=== PATIENT | male | born 1950 | race Caucasian/White ===

== ENCOUNTER 2016-11-23 20:42 | Inpatient (IN) | payer MEDICARE ==
--- NOTE | ~2016-11-23 | PN ---
Unit #: [id number] #: [id number] Patient: ROJAS CLINTON [id number] [facility] [address] [place] [address] [id number] MR#: [id number] NAME: ROJAS CLINTON. ROOM: P256 Age: 66 Sex: M Admission Date: 11/23/2016 : 1950 Attending Physician: Jonas Torres M.D. Admitting Physician: Jonas Torres M.D. Primary Care Physician: Generic Doctor Not In System [facility] PROGRESS NOTES DATE OF SERVICE 11/25/2016 DISCUSSION Rojas Clinton is a 66-year-old male seen on 11/25/2016. Patient interviewed, chart reviewed, and obtained information from nursing staff. Patient was compliant and cooperative. Mood sad, dysphoric, labile. Patient has poor insight and poor judgement. Patient reports that he does not need any medication. He was here for sciatic nerve problem. Patient reported that he feels trapped. Patient still having rambling stories, bizarre behavior, difficult to follow; but no aggression or self harm. REVIEW OF SYSTEMS Complete review of systems unremarkable. MENTAL STATUS EXAMINATION GENERAL APPEARANCE: Patient dressed casually. ATTENTION SPAN AND CONCENTRATION: Poor. ORIENTATION: Oriented in self. MOOD AND AFFECT: Labile. SPEECH: Rapid. THOUGHT PROCESS: Circumstantial, guarded. Denied any thoughts of harming self or others, but guarded, paranoid, and delusional. RECENT AND REMOTE MEMORY: Poor. INSIGHT AND JUDGEMENT: Poor. DIAGNOSES Psychosis, NOS. ASSESSMENT/PLAN Advised to continue with current medication and continue to encourage patient to take medication. If needed, consider further adjustment of medication. Dictated by... Armin Zhang/daniela TD: 11/26/2016 12:41 Unit #: [id number] #: [id number] Patient: ROJAS CLINTON JOB #: [id number] [employer] PROGRESS NOTES Page 1 of 1 X Jonas Torres MD PROGRESS NOTE
--- NOTE | ~2016-11-23 | HP ---
Unit #: [id number] #: [id number] Patient: ROJAS CLINTON [id number] [place] [address] [id number] I MR#: [id number] NAME: ROJAS CLINTON ROOM: P256 Age: 66 Sex: M Admission Date: 11/23/2016 : 1950 Attending Physician: Jonas Torres M.D. Admitting Physician: Jonas Torres M.D. Primary Care Physician: Generic Doctor Not In System HISTORY AND PHYSICAL HISTORY OF PRESENT ILLNESS Rojas is a 66 year old admitted to [address] [place] [address] with depression and verbalizing wanting to hurt himself. PAST MEDICAL HISTORY 1. Obesity 2. High blood pressure PAST SURGICAL HISTORY Nothing reported ALLERGIES Penicillin SOCIAL HISTORY Smokes one-half pack per day. Drinks a pint to a fifth of liquor on a daily basis. Denies illicit drug use. FAMILY HISTORY Medically noncontributory. REVIEW OF SYSTEMS CONSTITUTIONAL: No fever or chills. HEENT: Denies any sore throat, ear pain or runny nose. CARDIOVASCULAR: Denies chest pain, irregular heart rhythm or palpitations. CHEST: Denies shortness of breath or cough. No hemoptysis. GASTROINTESTINAL: Denies nausea, vomiting, diarrhea or chronic constipation. ENDOCRINE: Denies history of increased thirst or urination. No recent significant weight loss or gain. GENITOURINARY: Denies dysuria, frequency, or hematuria. SKIN: Denies any rashes. HEMATOLOGIC: Denies history of increased bleeding or bruising. MUSCULOSKELETAL: Denies any hot, swollen joints. No generalized muscle pain. NEUROLOGIC: Denies problems with vision or speech. No frequent, severe headaches. No numbness, tingling or weakness in any extremities. Denies loss of bladder or bowel control. CURRENT MEDICATIONS 1. Zyprexa 10 mg b.i.d. Unit #: [id number] #: [id number] Patient: ROJAS CLINTON 2. Vistaril 50 mg t.i.d. 3. Zestril 20 mg daily 4. Ibuprofen p.r.n. 5. Trazodone p.r.n. 6. Milk of Magnesia p.r.n. 7. Maalox p.r.n. 8. Tylenol p.r.n. PHYSICAL EXAMINATION GENERAL: Alert, well-nourished, in no apparent distress. VITAL SIGNS: Blood pressure 176/98, heart rate 72, respirations 16, temperature 98.6. WEIGHT: 226 pounds. HEIGHT: 6'0". SKIN: Warm and dry without rash or lesion. HEENT: Normocephalic. TMs not viewed. Oral and nasal passages clear. Conjunctivae clear. Pupils equal, round and reactive to light and accommodation. Extraocular movements intact. NECK: Supple without lymphadenopathy or thyromegaly. HEART: Regular rate and rhythm without murmur. LUNGS: Clear. ABDOMEN: Soft, nontender. : Not done. EXTREMITIES: No evidence of cyanosis, clubbing or edema. Moves all extremities without focal deficit. NEUROLOGICAL: Grossly within normal limits. Cranial Nerves: II: Visual toussaint are intact. III, IV AND : Extraocular movements are intact. Pupils are equal, round and reactive to light. V: Facial sensation is grossly normal. VII: Facial movements and expression are normal. VIII: Auditory acuity grossly intact. IX, X: Uvula is midline. Phonation is normal. XI: Patient shrugs shoulders and turns head normally. XII: Tongue protrudes in the midline. Sensory and Motor Function: Sensory and motor sensation is grossly normal. Motor: moves all extremities well. Coordination: Gait is normal. Deep Tendon Reflexes: Intact. IMPRESSION Psychiatric admission RECOMMENDATIONS PSYCHIATRIC: Per psychiatrist. MEDICAL: I see no contraindications to participating in facility's activities. MEDICAL PROGNOSIS Good. MEDICAL CONDITION Stable. Dictated by... Loren Muhammad P.A.-C. for Angel Akbar M.D. Unit #: [id number] #: [id number] Patient: ROJAS CLINTON Yen HUNT/flavia TD: 11/24/2016 23:04 JOB #: [id number] HISTORY AND PHYSICAL Page 1 of 1 X Loren Muhammad HISTORY AND PHYSICAL
--- NOTE | ~2016-11-23 | DS ---
Unit #: [id number] #: [id number] Patient: KURTIS CLINTON [id number] [facility] [address] [place] [address] [id number] MR#: [id number] NAME: KURTIS CLINTON. ROOM: P256 Age: 66 Sex: M Admission Date: 11/23/2016 : 1950 Discharge Date: 11/26/2016 Attending Physician: Jonas Torres M.D. Primary Care Physician: Generic Doctor Not In System DISCHARGE SUMMARY REASON FOR ADMISSION Anxiety. DIAGNOSTIC STUDIES LABORATORY RESULTS: Remarkable for glucose 120, chloride 96, and sodium 132. HOSPITAL COURSE The patient was admitted to inpatient unit on 11/23/2016 and discharged on 11/26/2016. The patient was on a 72-hour hold. The patient refused to take all medications, but maintained safe behavior. Denied any thoughts of harming self or others. The patient was somewhat guarded, paranoid, but denied any thoughts of harming self or others. The patient was not holdable at this time. Subsequently, the patient was discharged with a plan to follow up in outpatient program. DISCHARGE DIAGNOSES Psychiatric: 1. Psychosis, not otherwise specified, F29.0. 2. Mood disorder, not otherwise specified. Secondary diagnosis: Deferred. Medical diagnosis: Hypertension. Stressors: Psychosocial stressors. DISCHARGE INSTRUCTIONS The patient is to follow up in outpatient clinic as per foster care social worker. CONDITION ON DISCHARGE The patient was pleasant and cooperative. Denied any psychotic symptom or any suicidal ideation. PROGNOSIS Guarded. DIET AND ACTIVITY As tolerated. Dictated by... Jonas Torres M.D. Unit #: [id number] #: [id number] Patient: KURTIS CLINTON SZC/modl TD: 11/26/2016 16:48 JOB #: [id number] DISCHARGE SUMMARY Page 1 of 1 X Jonas Torres MD X DISCHARGE SUMMARY
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
--- NOTE | ~2016-11-23 | PN ---
Unit #: [id number] #: [id number] Patient: ROJAS CLINTON [id number] [facility] [address] [place] [address] [id number] I MR#: [id number] NAME: ROJAS CLINTON. ROOM: P256 Age: 66 Sex: M Admission Date: 11/23/2016 : 1950 Attending Physician: Jonas Torres M.D. Admitting Physician: Jonas Torres M.D. Primary Care Physician: Generic Doctor Not In System [facility] PROGRESS NOTES DATE OF SERVICE: 11/24/2016 DISCUSSION Rojas Clinton is a 66-year-old male, seen on 11/24/2016. The patient interviewed, chart reviewed, and obtained information from nursing staff. The patient's mood was labile, rapid speech, guarded, paranoid, impulsive, mood lability. Vital signs stable; temperature 98.3, respirations 18, pulse 73, and blood pressure 177/98. The patient continues to have delusional thoughts, paranoia, grandiose ideation. Complete review of systems unremarkable. MENTAL STATUS EXAMINATION General appearance, the patient dressed casually. Attention span and concentration, poor. Mood and affect, labile. Speech, rapid and pressured. Thought process; circumstantial, guarded, paranoid. Recent and remote memory, poor. Insight and judgment, poor. DIAGNOSES 1. Psychosis, not otherwise specified. 2. Bipolar mood disorder, not otherwise specified. ASSESSMENT AND PLAN Advised to continue with current medication and therapeutic protocol. If needed, consider further adjustment of medication. Dictated by... Armin Zhang/kasie TD: 11/24/2016 18:56 JOB #: [id number] Unit #: [id number] #: [id number] Patient: ROJAS CLINTON [facility] PROGRESS NOTES Page 1 of 1 X Jonas Torres MD PROGRESS NOTE
[2016-11-24 09:55] LABS: BASOPHIL% 0.1 % (0-2.5); HEMATOCRIT 48.4 % (38.0-50.0); HEMOGLOBIN 16.1 gm/dL (13.0-16.0); LYMPHOCYTE# 1.7 X10e3 (1.0-3.5); LYMPHOCYTE% 10.2 % (17.0-45.0); MEAN CELL VOLUME 107.3 FL (83-96); MEAN CORPUSCULAR HEMOGLOBIN 35.7 PG (28-34); MEAN CORPUSCULAR HGB CONC 33.3 g/dL (30-36); MEAN PLATELET VOLUME 9.3 FL (6.5-11.5); MONOCYTE# 0.7 X10e3 (0-1.0); MONOCYTE% 4.6 % (3.0-12.0); NEUTROPHIL# 13.8 X10e3 (1.5-7.1); NEUTROPHIL% 85.1 % (40-75); PLATELET COUNT 145 X10e3 (140-420); RED BLOOD COUNT 4.51 X10e (3.90-5.60); RED CELL DISTRIBUTION WIDTH 15.6 % (11.0-15.5); WHITE BLOOD COUNT 16.2 X10e3 (4.0-10.5)
[2016-11-24 09:59] LABS: DIFF IND YES
[2016-11-24 10:08] LABS: BILIRUBIN,TOTAL 1.2 mg/dL (0.2-2.0); BUN/CREATININE RATIO 20.76; CALCIUM SERUM 9.8 mg/dL (8.4-10.2); CREATININE SERUM 1.3 mg/dL (0.6-1.4); GLOM FILT RATE Estimated 56.5 mL/min (>60); POTASSIUM 4.6 mmol/L (3.5-5.1)
[2016-11-24 11:43] LABS: ANISOCYTOSIS SL; PLATELET ESTIMATE NORMAL (NORMAL); RBC NORMAL YES
== END 2016-11-26 18:00 | disposition left against medical advice (07) | DRG 885 ==
LOC: P2L 20:42
PROVIDERS: Psychiatry & Neurology Psychiatry
DX: F29 Unspecified psychosis not due to a substance or known physiological condition (principal); F39 Unspecified mood [affective] disorder; I10 Essential (primary) hypertension; F32.9 Major depressive disorder, single episode, unspecified; F43.10 Post-traumatic stress disorder, unspecified; G89.29 Other chronic pain; M54.9 Dorsalgia, unspecified; F17.210 Nicotine dependence, cigarettes, uncomplicated; E66.9 Obesity, unspecified; Z68.30 Body mass index [BMI] 30.0-30.9, adult
CPT/HCPCS: 80053; 85025